=== PATIENT | male | born 1970 | race African-American/Black ===

== ENCOUNTER 2017-01-20 13:03 | Inpatient (IN) | payer MEDICAID ==
[~2017-01-20] VITALS: Ht 175.3 cm; Wt 99.1 kg
[~2017-01-20 13:03] MED LIST: ARIP10TA8 PO; VENL-193 PO
[2017-01-20 14:02] LABS: BASOPHILS % (AUTO) 0.3 % (0.0-2.0); EOSINOPHILS % (AUTO) 1.9 % (1.0-6.0); HEMATOCRIT 40.5 % (41-53); HEMOGLOBIN 13.4 g/dL (13.5-17.5); LYMPHOCYTES # (AUTO) 1.9 K/uL (1.0-4.8); LYMPHOCYTES % (AUTO) 22.2 % (22.0-44.0); MEAN CORPUSCULAR VOLUME 91 fL (80-100); MONOCYTES # (AUTO) 0.5 K/uL (0.1-1.0); MONOCYTES % (AUTO) 6.1 % (2.0-9.0); NEUTROPHILS % (AUTO) 69.5 % (40.0-70.0); PLATELET COUNT (AUTO) 312 K/uL (150-450); RED BLOOD CELL COUNT(AUTO) 4.46 MIL/uL (4.50-5.90); RED CELL DISTRIBUTION WIDTH 15.4 % (11.5-14.5); WHITE BLOOD COUNT (AUTO) 8.6 K/uL (4.5-11.0)
[2017-01-20 14:07] LABS: GLUCOSE,POINT OF CARE 201 MG/DL (70-110)
[2017-01-20 14:08] LABS: ANION GAP 1 mmol/L (8-16); CARBON DIOXIDE 34 mmol/L (22-29); CHLORIDE 101 mmol/L (98-107); GLOMERULAR FILTR. RATE CALC > 60 mL/min (>60); POTASSIUM 4.2 mmol/L (3.5-5.1); SODIUM SERUM 136 mmol/L (136-145); UREA NITROGEN, BLOOD 11 mg/dL (7-18)
[2017-01-20 14:13] LABS: ALANINE AMINOTRANSFERASE 28 U/L (12-78); ALBUMIN 2.7 g/dL (3.4-5.0); ASPARTATE AMINOTRANSFERASE 21 U/L (15-37); BILIRUBIN,TOTAL 0.3 mg/dL (0.1-1.0); TOTAL PROTEIN, SERUM 7.2 g/dL (6.4-8.2)
[2017-01-20] MEDS ORDERED: ZOLPIDEM TARTRATE 10 MG TABLET PO PRN (15:00)
[2017-01-20] MEDS ORDERED: LORazepam 2 MG TABLET PO PRN (15:00)
[2017-01-20] MEDS ORDERED: HALOPERIDOL 5 MG TABLET PO PRN (15:00)
[2017-01-20] MEDS ORDERED: DEXTROSE 50%-WATER 25 GM/50 ML SYRINGE IVP PRN (17:15)
[2017-01-20] MEDS: MetFORMIN HCL 500 MG TABLET PO SCH (17:31)
[2017-01-20] MEDS: INSULIN ASPART 100 UNITS/ML SQ PRN ×2 (17:32→20:59)
[2017-01-20 17:33] LABS: GLUCOSE COMMENT 1 Received Meds; GLUCOSE,POINT OF CARE 228 MG/DL (70-110)
[2017-01-20 19:29] VITALS: BP 150/99
[2017-01-20] MEDS: TraZODone HCL 50 MG TABLET PO SCH (20:54)
[2017-01-20 22:54] LABS: GLUCOSE COMMENT 1 Received Meds; GLUCOSE,POINT OF CARE 208 MG/DL (70-110)
[2017-01-21 06:23] LABS: GLUCOSE COMMENT 1 Received Meds; GLUCOSE,POINT OF CARE 154 MG/DL (70-110)
[2017-01-21] MEDS: MetFORMIN HCL 500 MG TABLET PO SCH ×2 (06:31→17:07)
[2017-01-21] MEDS: BuPROPion HCL XL 150 MG ER TABLET PO SCH (09:00)
[2017-01-21] MEDS: ARIPiprazole 10 MG TABLET PO SCH (09:00)
[2017-01-21 09:04] VITALS: BP 144/97
[2017-01-21 11:48] LABS: GLUCOSE,POINT OF CARE 174 MG/DL (70-110)
[2017-01-21 17:10] VITALS: BP 133/97
[2017-01-21] MEDS: INSULIN ASPART 100 UNITS/ML SQ PRN (17:37)
[2017-01-21 20:18] LABS: GLUCOSE,POINT OF CARE 182 MG/DL (70-110)
[2017-01-21] MEDS: TraZODone HCL 50 MG TABLET PO SCH (21:21)
[2017-01-22 00:08] LABS: GLUCOSE,POINT OF CARE 136 MG/DL (70-110)
[2017-01-22 06:07] LABS: GLUCOSE,POINT OF CARE 161 MG/DL (70-110)
[2017-01-22] MEDS: MetFORMIN HCL 500 MG TABLET PO SCH ×2 (06:34→16:18)
[2017-01-22] MEDS: ARIPiprazole 10 MG TABLET PO SCH (08:54)
[2017-01-22] MEDS: BuPROPion HCL XL 150 MG ER TABLET PO SCH (08:54)
[2017-01-22 10:33] VITALS: BP 150/95
[2017-01-22 11:42] LABS: GLUCOSE,POINT OF CARE 160 MG/DL (70-110)
[2017-01-22] MEDS: INSULIN ASPART 100 UNITS/ML SQ PRN (12:32)
[2017-01-22] MEDS: MUPIROCIN CALCIUM 2% 22 GM OINTMENT NASAL SCH (16:22)
[2017-01-22 16:27] LABS: GLUCOSE,POINT OF CARE 153 MG/DL (70-110)
[2017-01-22 16:42] VITALS: BP 138/90
[2017-01-22] MEDS: TraZODone HCL 50 MG TABLET PO SCH (20:39)
[2017-01-23 06:07] LABS: GLUCOSE,POINT OF CARE 137 MG/DL (70-110)
[2017-01-23] MEDS: MetFORMIN HCL 500 MG TABLET PO SCH ×2 (06:57→16:50)
[2017-01-23] MEDS: INSULIN ASPART 100 UNITS/ML SQ PRN ×3 (07:01→21:07)
[2017-01-23 07:39] LABS: HEMOGLOBIN A1C 9.8 % (4.5-6.2)
[2017-01-23 07:40] LABS: CHOL/HDL RATIO 4.6 (4.2-7.3); MAGNESIUM 1.3 mg/dL (1.80-2.40); THYROID STIMULATING HORMONE 3.61 uIU/mL (0.36-3.74)
[2017-01-23 09:15] VITALS: BP 154/85
[2017-01-23] MEDS: BuPROPion HCL XL 150 MG ER TABLET PO SCH (09:48)
[2017-01-23] MEDS: LISINOPRIL 10 MG TABLET PO SCH (09:48)
[2017-01-23] MEDS: MUPIROCIN CALCIUM 2% 22 GM OINTMENT NASAL SCH ×2 (09:49→16:50)
[2017-01-23] MEDS: ARIPiprazole 10 MG TABLET PO SCH (09:49)
[2017-01-23 11:12] LABS: GLUCOSE,POINT OF CARE 221 MG/DL (70-110)
[2017-01-23] MEDS ORDERED: DENTURE ADHESIVE 68 GM CREAM DT PRN (15:15)
[2017-01-23 16:00] VITALS: BP 109/69
[2017-01-23 17:23] LABS: GLUCOSE,POINT OF CARE 188 MG/DL (70-110)
[2017-01-23] MEDS: TraZODone HCL 50 MG TABLET PO SCH (21:03)
[2017-01-23 21:12] LABS: GLUCOSE,POINT OF CARE 161 MG/DL (70-110)
[2017-01-24 05:48] LABS: GLUCOSE,POINT OF CARE 140 MG/DL (70-110)
[2017-01-24] MEDS: INSULIN ASPART 100 UNITS/ML SQ PRN ×2 (06:54→12:18)
[2017-01-24] MEDS: MetFORMIN HCL 500 MG TABLET PO SCH ×2 (06:59→17:23)
[2017-01-24 07:52] LABS: HEPATITIS Bs ANTIGEN SCREEN P Negative (Negative); HEPATITIS C AB SCREEN <0.1 s/co ratio (0.0-0.9)
[2017-01-24 09:45] VITALS: BP 116/67
[2017-01-24] MEDS: BuPROPion HCL XL 150 MG ER TABLET PO SCH (09:52)
[2017-01-24] MEDS: MUPIROCIN CALCIUM 2% 22 GM OINTMENT NASAL SCH ×2 (09:52→17:26)
[2017-01-24] MEDS: ARIPiprazole 10 MG TABLET PO SCH (09:52)
[2017-01-24] MEDS: LISINOPRIL 10 MG TABLET PO SCH (09:52)
[2017-01-24 13:20] LABS: GLUCOSE,POINT OF CARE 154 MG/DL (70-110)
[2017-01-24 18:31] VITALS: BP 116/71
[2017-01-24] MEDS: TraZODone HCL 50 MG TABLET PO SCH (20:50)
[2017-01-25] MEDS: MetFORMIN HCL 500 MG TABLET PO SCH ×2 (06:35→17:20)
[2017-01-25] MEDS: INSULIN ASPART 100 UNITS/ML SQ PRN ×3 (06:42→17:23)
[2017-01-25 08:03] LABS: GLUCOSE,POINT OF CARE 145 MG/DL (70-110)
[2017-01-25 08:48] VITALS: BP 135/78
[2017-01-25 09:11] LABS: GLUCOSE COMMENT 1 Received Meds; GLUCOSE COMMENT 2 FASTING; GLUCOSE,POINT OF CARE 208 MG/DL (70-110)
[2017-01-25 09:20] LABS: GLUCOSE COMMENT 1 FASTING; GLUCOSE,POINT OF CARE 185 MG/DL (70-110)
[2017-01-25] MEDS: MUPIROCIN CALCIUM 2% 22 GM OINTMENT NASAL SCH ×2 (10:48→17:21)
[2017-01-25] MEDS: ARIPiprazole 10 MG TABLET PO SCH (10:48)
[2017-01-25] MEDS: LISINOPRIL 10 MG TABLET PO SCH (10:48)
[2017-01-25] MEDS: BuPROPion HCL XL 150 MG ER TABLET PO SCH (10:48)
[2017-01-25 12:28] LABS: GLUCOSE,POINT OF CARE 179 MG/DL (70-110)
[2017-01-25] MEDS ORDERED: ARIPiprazole ER SUSPENSION 400 MG PRE-FILLED DUAL CHAMBER SYRINGE IM SCH (15:00)
[2017-01-25 17:07] LABS: GLUCOSE COMMENT 1 Received Meds; GLUCOSE,POINT OF CARE 171 MG/DL (70-110)
[2017-01-25] MEDS: TraZODone HCL 50 MG TABLET PO SCH (20:38)
[2017-01-25 21:10] VITALS: BP 104/63
[2017-01-26 05:38] LABS: GLUCOSE COMMENT 1 Received Meds; GLUCOSE,POINT OF CARE 192 MG/DL (70-110)
[2017-01-26] MEDS: MetFORMIN HCL 500 MG TABLET PO SCH ×2 (06:53→07:12)
[2017-01-26] MEDS: INSULIN ASPART 100 UNITS/ML SQ PRN ×2 (06:57→12:11)
[2017-01-26 08:05] VITALS: BP 121/61
[2017-01-26] MEDS: MUPIROCIN CALCIUM 2% 22 GM OINTMENT NASAL SCH (10:33)
[2017-01-26] MEDS: LISINOPRIL 10 MG TABLET PO SCH (10:33)
[2017-01-26] MEDS: ARIPiprazole 10 MG TABLET PO SCH (10:33)
[2017-01-26] MEDS: BuPROPion HCL XL 150 MG ER TABLET PO SCH (10:33)
[2017-01-26 12:02] LABS: GLUCOSE,POINT OF CARE 184 MG/DL (70-110)
[2017-01-26] MEDS ORDERED: TRAZ-144 PO (13:29)
[2017-01-26] MEDS ORDERED: BUPR-93 PO (13:29)
[2017-01-26] MEDS ORDERED: LISI-661 PO (13:30)
[2017-01-26] MEDS ORDERED: INSU100V12 SQ (13:31)
[2017-01-26] MEDS ORDERED: INSULIN DETEMIR 100 UNITS/ML SQ SCH (21:00)
[2017-02-22] MEDS ORDERED: ARIPiprazole ER SUSPENSION 400 MG PRE-FILLED DUAL CHAMBER SYRINGE IM SCH (09:00)
== END 2017-01-26 15:00 | disposition home or self-care (01) | DRG 750 ==
LOC: EMS 13:04 → AHU 14:27 → 3EI 17:05
DX: F25.1 Schizoaffective disorder, depressive type (principal); R45.851 Suicidal ideations; E11.9 Type 2 diabetes mellitus without complications; I10 Essential (primary) hypertension; F17.210 Nicotine dependence, cigarettes, uncomplicated; F15.90 Other stimulant use, unspecified, uncomplicated; Z91.5 Personal history of self-harm; Z79.899 Other long term (current) drug therapy; Z59.0 Homelessness; Z86.19 Personal history of other infectious and parasitic diseases; Z22.322 Carrier or suspected carrier of Methicillin resistant Staphylococcus aureus; Z83.3 Family history of diabetes mellitus; Z80.0 Family history of malignant neoplasm of digestive organs
CPT/HCPCS: 80074; 82306; 82607; 82746; 82962; 83036; 83735; 84439; 84443; 87081; 99285; G0480; J0401